=== PATIENT | female | born 1975 | race African-American/Black ===

== ENCOUNTER 2021-09-04 07:57 | Outpatient (CLI) | payer BC | END 2021-09-04 07:58 | disposition home or self-care (01) | LOC: BICMAMMO 07:57 | PROVIDERS: ATTEND Student in an Organized Health Care Education/Training Program | DX: Z12.31 Encounter for screening mammogram for malignant neoplasm of breast (principal) | CPT/HCPCS: 77063; 77067 ==

== ENCOUNTER 2021-10-31 23:24 | Emergency (ER) | payer BC ==
[2021-11-01] MEDS ORDERED: diphenhydrAMINE 25 MG CAP ONE (00:54)
[2021-11-01] MEDS ORDERED: hydrOXYzine 25 MG TAB ONE (01:26)
== END 2021-11-01 02:33 | disposition home or self-care (01) ==
LOC: ERS 23:24
DX: T78.40XA Allergy, unspecified, initial encounter (principal); I10 Essential (primary) hypertension; Z79.899 Other long term (current) drug therapy
CPT/HCPCS: 99283

== ENCOUNTER 2022-04-02 06:50 | Outpatient (CLI) | payer BC | END 2022-04-02 06:51 | disposition home or self-care (01) | LOC: BICULT 06:50 | PROVIDERS: ATTEND Physician Assistant Medical | DX: R10.11 Right upper quadrant pain (principal); R14.0 Abdominal distension (gaseous); R11.0 Nausea | CPT/HCPCS: 76705 ==

== ENCOUNTER 2022-12-17 07:34 | Outpatient (CLI) | payer BC | END 2022-12-17 07:35 | disposition home or self-care (01) | LOC: BICMAMMO 07:34 | PROVIDERS: ATTEND Student in an Organized Health Care Education/Training Program | DX: Z12.31 Encounter for screening mammogram for malignant neoplasm of breast (principal) | CPT/HCPCS: 77063; 77067 ==

== ENCOUNTER 2023-04-21 04:13 | Emergency (ER) | payer BC ==
[2023-04-21] MEDS ORDERED: Mag-Al 1200 mg/1200 mg/30 ML UDCUP ONE (05:12)
[2023-04-21 05:18] LABS: #Eosinphils 0.1 thou/uL (0.0-0.7); #Monocytes 0.5 thou/uL (0.11-0.59); #Neutrophils 2.9 thou/uL (1.40-6.50); %Basophils 0.5 % (0.0-1.0); %Eosinophils 1.3 % (0.0-10.0); %Lymphocytes 35.8 % (21.0-51.0); %Monocytes 9.3 % (0.0-10.0); %Neutrophils 52.9 % (42.0-75.0); Hematocrit 36.4 % (36.0-47.0); Hemoglobin 11.5 g/dL (12.0-16.0); Mean Corpuscular HGB CONC 31.6 g/dL (32.0-36.0); Mean Corpuscular Hemoglobin 22.4 pg (27.0-31.0); Mean Corpuscular Volume 70.8 fl (78.0-98.0); Mean Platelet Volume 11.9 fL (7.4-10.4); Platelet Count 226 10x3/uL (130-400); RBC Distribution Width 15.1 % (11.5-14.5); Red Blood Cell (RBC) Count 5.14 mill/uL (4.20-5.40); White Blood Cell (WBC) Count 5.5 10x3/uL (4.8-10.8)
[2023-04-21 05:38] LABS: BHCG - Serum Negative (NEGATIVE); Pregs Control Background? CLEAR/WHITE (CLR/WHITE); Pregs Control Bar Appear? YES (CONTROL BAR)
[2023-04-21 05:44] LABS: ALT (SGPT) 13 U/L (8-55); AST (SGOT) 15 U/L (5-34); Albumin 3.7 g/dL (3.5-5.0); Alkaline Phosphatase 100 U/L (40-110); Anion Gap 14 mmol/L (10-20); BUN (Urea Nitrogen) 17 mg/dL (7.0-18.7); Bilirubin, Total 0.3 mg/dL (0.2-1.2); Calc. Creatinine Clearance 0 mL/min (70-130); Calcium 8.6 mg/dL (7.8-10.44); Carbon Dioxide 25 mmol/L (22-29); Chloride 106 mmol/L (98-107); Estimated GFR 47; Globulin 3.5 g/dL (2.4-3.5); Glucose 101 mg/dL (70-105); Potassium 4.1 mmol/L (3.5-5.1); Protein, Total 7.2 g/dL (6.0-8.3); Sodium 141 mmol/L (136-145); Troponin I Less than 0.010 ng/mL (< 0.028)
[2023-04-21 07:02] LABS: Anisocytosis SLIGHT = 6-15 cells (100X) (0-5/hpf)
[2023-04-21] MEDS ORDERED: Iopamidol 370 76% 100 ML VIAL ONE (09:16)
== END 2023-04-21 07:51 | disposition home or self-care (01) ==
LOC: ERS 04:13
DX: K21.9 Gastro-esophageal reflux disease without esophagitis (principal); R74.8 Abnormal levels of other serum enzymes; I10 Essential (primary) hypertension; Z79.899 Other long term (current) drug therapy
CPT/HCPCS: 36415; 71045; 74177; 80053; 83690; 84484; 84703; 85025; 93005; Q9967

== ENCOUNTER 2024-02-16 10:06 | Outpatient (CLI) | payer BC | END 2024-02-16 10:07 | disposition home or self-care (01) | LOC: BICMAMMO 10:06 | PROVIDERS: ATTEND Obstetrics & Gynecology | DX: Z12.31 Encounter for screening mammogram for malignant neoplasm of breast (principal) | CPT/HCPCS: 77063; 77067 ==

== ENCOUNTER 2024-04-24 14:37 | Emergency (ER) | payer BC, OTHER ==
[2024-04-24] MEDS ORDERED: cloNIDine 0.1 MG TAB ONE (15:56)
[2024-04-24] MEDS ORDERED: Dexamethasone 10 MG/ML VIAL ONE (15:56)
[2024-04-24] MEDS ORDERED: Metoclopramide HCl 10 MG (2 mL) VIAL ONE (15:57)
[2024-04-24] MEDS ORDERED: Ketorolac Tromethamine 30 MG (1 mL) VIAL ONE (15:57)
[2024-04-24 16:15] LABS: #Basophils 0.03 10x3/uL (0.0-0.2); %Basophils 0.5 % (0.0-1.0); %Eosinophils 1.8 % (0.0-10.0); %Lymphocytes 34.7 % (21.0-51.0); %Monocytes 9.3 % (0.0-10.0); %Neutrophils 53.4 % (42.0-75.0); Hematocrit 37.1 % (36.0-47.0); Hemoglobin 12.1 g/dL (12.0-16.0); Mean Corpuscular HGB CONC 32.6 g/dL (32.0-36.0); Mean Corpuscular Hemoglobin 22.4 pg (27.0-31.0); Mean Corpuscular Volume 68.7 fL (78.0-98.0); Mean Platelet Volume 11.7 fL (7.4-10.4); Platelet Count 311 10x3/uL (130-400); RBC Distribution Width 15.9 % (11.5-14.5)
[2024-04-24 16:17] LABS: Troponin I Less than 0.010 ng/mL (< 0.028)
[2024-04-24 16:30] LABS: Eosinophils 2 % (0-10); Hypochromia SLIGHT = 6-15 cells HPF (0-5); Large Platelets 10.8 % (0-5); Lymphocytes 28 % (21-51); Macrocytosis SLIGHT = 6-15 cells HPF (0-5); Microcytosis SLIGHT = 6-15 cells HPF (0-5); Monocytes 3 % (0-10); Neutrophil 63 % (42-75); Ovalocytes SLIGHT = 2-5 cells HPF (0-1); Platelet Adequacy Comment Platelets Normal; Polychromasia SLIGHT = 2-3 cells HPF (0-2); Reactive Lymphocytes 1 % (0-10); Smudge Cells 8.8 %; Tear Drops SLIGHT = 2-5 cells HPF (0-1)
[2024-04-24 17:13] LABS: ALT (SGPT) 13 U/L (8-55); AST (SGOT) 13 U/L (5-34); Albumin 3.5 g/dL (3.5-5.0); Alkaline Phosphatase 79 U/L (40-110); Anion Gap 10 mmol/L (10-20); BUN (Urea Nitrogen) 15 mg/dL (7.0-18.7); Bilirubin, Total 0.3 mg/dL (0.2-1.2); Calc. Creatinine Clearance 0 mL/min (70-130); Calcium 8.8 mg/dL (7.8-10.44); Carbon Dioxide 25 mmol/L (22-29); Chloride 106 mmol/L (98-107); Estimated GFR 70; Globulin 3.7 g/dL (2.4-3.5); Glucose 90 mg/dL (70-105); Potassium 3.8 mmol/L (3.5-5.1); Protein, Total 7.2 g/dL (6.0-8.3); Sodium 137 mmol/L (136-145)
== END 2024-04-24 17:10 | disposition home or self-care (01) ==
LOC: ERS 14:37
DX: I16.0 Hypertensive urgency (principal); I10 Essential (primary) hypertension
CPT/HCPCS: 36415; 70450; 71045; 80053; 83880; 84484; 85025; 96374; 96375; J1100; J1885; J2765

== ENCOUNTER 2025-03-03 10:24 | Day surgery (SDC) | payer SELFPAY ==
[2025-03-02 09:38] VITALS: BMI 71.0
[2025-03-03] MEDS ORDERED: GLYCOPYRROLATE/PF 0.2 MG/ML VIAL ONE (12:40)
[2025-03-03] MEDS ORDERED: PROPOFOL 200 MG/20 ML VIAL ONE (12:49)
[2025-03-03] MEDS ORDERED: PHENYLEPHRINE-NS 100 MCG/ML 10 ML SYRINGE ONE (12:49)
== END 2025-03-03 13:55 | disposition home or self-care (01) ==
LOC: SDC 10:24
PROVIDERS: ATTEND Internal Medicine Gastroenterology
PROC: 0DB68ZX Excision of Stomach, Via Natural or Artificial Opening Endoscopic, Diagnostic (ICD-10-PCS; principal; 2025-03-03)
DX: Z12.11 Encounter for screening for malignant neoplasm of colon (principal); K21.9 Gastro-esophageal reflux disease without esophagitis; K64.8 Other hemorrhoids; K44.9 Diaphragmatic hernia without obstruction or gangrene; I10 Essential (primary) hypertension; E78.5 Hyperlipidemia, unspecified; Z88.8 Allergy status to other drugs, medicaments and biological substances
CPT/HCPCS: 88305; 88342; J2250; J2704; J3490